=== PATIENT | female | born 1955 | race Caucasian/White ===

== ENCOUNTER → 2018-03-06 | Outpatient (CLI) | payer MEDICARE ==
[~2018-03-06] MED LIST: ALLERGY INJECTIONS IM; CETI10TA24 PO; CHOL100011 PO; FAMO-79 PO; FEXO180T72 PO; FLAX1000 PO; HYDR-882 PO; LACT1CAP35 PO; LEVO125T PO; POLY17PO5 PO; VITAMIN B12 IM
[2018-03-06 12:48] LABS: BASOPHILS # (AUTO) 0.03 x10^3/uL (0-0.1); BASOPHILS % (AUTO) 1 % (0-1); EOSINOPHILS # (AUTO) 0.07 x10^3/uL (0-0.4); EOSINOPHILS % (AUTO) 2 % (1-7); LYMPHOCYTES # (AUTO) 1.34 x10^3/uL (1-3.4); LYMPHOCYTES % (AUTO) 29 % (22-44); MD NO; MEAN CORPUSCULAR HEMOGLOBIN 32.1 pg (27.0-34.8); MEAN CORPUSCULAR HGB CONC 34.4 g/dL (32.4-35.8); MEAN CORPUSCULAR VOLUME 93.3 fL (80-100); MEAN PLATELET VOLUME 7.4 fL (7.4-10.4); MICROSCOPIC AUTO; MONOCYTES # (AUTO) 0.26 x10^3/uL (0.2-0.8); MONOCYTES % (AUTO) 6 % (2-9); NEUTROPHILS # (AUTO) 2.87 x10^3/uL (1.8-6.8); NEUTROPHILS % (AUTO) 63 % (42-75); PLATELET COUNT 304 x10^3/uL (130-400); RED BLOOD COUNT 4.81 x10^6/uL (3.82-5.3)
[2018-03-06 12:49] LABS: CULTURE INDICATED? NO
[2018-03-06 12:53] LABS: ANION GAP 7 mmol/L (5-15); CALCIUM 9.2 mg/dL (8.5-10.1); CHLORIDE 107 mmol/L (98-107); CREATININE 1.03 mg/dL (0.55-1.02)
== END | disposition home or self-care (01) ==
LOC: STAR 11:53
PROVIDERS: ATTEND Orthopaedic Surgery
DX: Z01.818 Encounter for other preprocedural examination (principal); M17.12 Unilateral primary osteoarthritis, left knee
CPT/HCPCS: 36415; 80048; 81001; 85025; 87081; 93005

== ENCOUNTER 2018-03-12 07:06 | Inpatient (IN) | payer MEDICARE ==
[~2018-03-12] VITALS: Ht 175.3 cm; Wt 71.8 kg
[~2018-03-12 07:06] MED LIST changes: +EPINEPHRINE 1 MG/ML, 1ML ONE; -HYDR-882 PO; +KETOROLAC 60 MG/2 ML ONE; +ROPIvacaine/PF 0.2%, 20 ML ONE; +SODIUM CHLORIDE 0.9% 100 ML ONE; +TRANEXAMIC ACID 100 MG/ML, 10ML ONE; +VANCOMYCIN 1,000 MG ONE
[2018-03-12] MEDS ORDERED: ACETAMINOPHEN 500 MG TABLET PO ONE (07:30)
[2018-03-12] MEDS ORDERED: SCOPOLAMINE PATCH, 1.5MG PATCH.TD72 TD ONE (07:30)
[2018-03-12] MEDS ORDERED: OxyconTIN ER 10 MG TAB.ER PO ONE (07:30)
[2018-03-12] MEDS ORDERED: GABAPENTIN 300 MG CAPSULE PO ONE (07:30)
[2018-03-12] MEDS ORDERED: MIDAZOLAM 1 MG/ML, 2ML ONE (07:57)
[2018-03-12] MEDS ORDERED: FENTANYL PF 100 MCG/2ML ONE (07:58)
[2018-03-12] MEDS: LACTATED RINGERS 1,000 ML IV SCH ×2 (08:18→20:25)
[2018-03-12] MEDS: D5%-0.45% NACL 1,000 ML IV SCH ×2 (10:01→18:01)
[2018-03-12] MEDS ORDERED: PROPOFOL 10 MG/ML, 20ML ONE (10:13)
[2018-03-12] MEDS ORDERED: CEFAZOLIN 1,000 MG ONE (10:13)
[2018-03-12] MEDS ORDERED: ROCURONIUM 10 MG/ML,10ML ONE (10:13)
[2018-03-12] MEDS ORDERED: DEXAMETHASONE 4 MG/ML, 1ML ONE (10:13)
[2018-03-12] MEDS ORDERED: ONDANSETRON 2MG/ML, 2ML ONE (10:13)
[2018-03-12] MEDS ORDERED: SUCCINYLCHOLINE 20 MG/ML, 10ML ONE (10:13)
[2018-03-12] MEDS ORDERED: DIAZEPAM 5 MG TABLET PO PRN (10:30)
[2018-03-12] MEDS ORDERED: HYDROmorphone 2MG TABLET PO PRN (10:30)
[2018-03-12] MEDS ORDERED: KETOROLAC 30 MG/1 ML IV SCH (10:30)
[2018-03-12] MEDS ORDERED: ZOLPIDEM 5MG TABLET PO PRN (10:30)
[2018-03-12] MEDS ORDERED: HYDROmorphone 1 MG/ML, 1ML IV PRN ×2 (10:30→12:30)
[2018-03-12] MEDS ORDERED: BISACODYL 10 MG SUPP PR PRN (10:30)
[2018-03-12] MEDS ORDERED: ONDANSETRON 4 MG TABLET PO PRN (10:30)
[2018-03-12] MEDS ORDERED: MAGNESIUM HYDROXIDE 8%, 30ML UDC PO PRN (10:30)
[2018-03-12] MEDS ORDERED: SENNA/DOCUSATE TABLET PO PRN (10:30)
[2018-03-12] MEDS ORDERED: ALUMINUM/MAG/SIMETHICONE 30 ML UDC PO PRN (10:30)
[2018-03-12] MEDS ORDERED: DIPHENHYDRAMINE 50 MG CAPSULE PO PRN (10:30)
[2018-03-12] MEDS ORDERED: PROMETHAZINE 25 MG/ML, 1ML IM PRN (10:30)
[2018-03-12] MEDS ORDERED: PROMETHAZINE 12.5 MG SUPP PR PRN (10:30)
[2018-03-12] MEDS ORDERED: ONDANSETRON 2MG/ML, 2ML IV PRN (10:30)
[2018-03-12] MEDS ORDERED: TRANEXAMIC ACID 1,000 MG in SODIUM CHLORIDE 0.9% 100 ML IVPB ONE (12:00)
[2018-03-12] MEDS ORDERED: LABETALOL 5MG/ML, 20ML IV PRN (12:30)
[2018-03-12] MEDS ORDERED: ALBUTEROL SULFATE 2.5 MG/3 ML NPPB PRN (12:30)
[2018-03-12] MEDS ORDERED: OXYcodone 5 MG/5 ML ORAL.SOL UDC PO PRN (12:30)
[2018-03-12] MEDS ORDERED: METOCLOPRAMIDE 5 MG/ML, 2ML IV PRN (12:30)
[2018-03-12] MEDS ORDERED: KETOROLAC 30 MG/1 ML IV PRN (12:30)
[2018-03-12] MEDS ORDERED: hydrALAzine 20 MG/ML, 1ML IV PRN (12:30)
[2018-03-12] MEDS ORDERED: MEPERIDINE/PF 25MG/0.5ML IVPush PRN (12:30)
[2018-03-12] MEDS ORDERED: ONDANSETRON 2MG/ML, 2ML IVPush PRN (12:30)
[2018-03-12] MEDS ORDERED: FENTANYL PF 100 MCG/2ML IV PRN (12:30)
[2018-03-12] MEDS ORDERED: PROMETHAZINE 25 MG/ML, 1ML IV PRN (12:30)
[2018-03-12] MEDS ORDERED: OXYcodone 5 MG/5 ML ORAL.SOL UDC ONE (12:36)
[2018-03-12 13:20] VITALS: BP 138/74
[2018-03-12] MEDS: ACETAMINOPHEN 650 MG/20.3 ML UDC PO SCH ×2 (14:45→20:24)
[2018-03-12] MEDS: TAMSULOSIN 0.4 MG CAP.ER.24H PO SCH (16:30)
[2018-03-12] MEDS: KETOROLAC 30 MG/1 ML IV SCH ×2 (16:30→22:33)
[2018-03-12] MEDS: CEFAZOLIN PMX 2GM/50ML 50 ML IVPB SCH (18:20)
[2018-03-12 20:18] VITALS: BP 141/69
[2018-03-12] MEDS: DOCUSATE 100 MG CAPSULE PO SCH (20:24)
[2018-03-13 00:17] VITALS: BP 106/66
[2018-03-13] MEDS: D5%-0.45% NACL 1,000 ML IV SCH (01:10)
[2018-03-13] MEDS: CEFAZOLIN PMX 2GM/50ML 50 ML IVPB SCH (02:10)
[2018-03-13] MEDS: ACETAMINOPHEN 650 MG/20.3 ML UDC PO SCH ×2 (02:11→08:42)
[2018-03-13 03:07] VITALS: BP 111/70
[2018-03-13] MEDS: KETOROLAC 30 MG/1 ML IV SCH ×2 (04:37→10:29)
[2018-03-13] MEDS ORDERED: ASPIRIN 81 MG TABLET EC PO SCH (06:00)
[2018-03-13] MEDS ORDERED: LEVOTHYROXINE 125 MCG TABLET PO SCH (06:00)
[2018-03-13] MEDS ORDERED: DEXAMETHASONE 4 MG/ML, 1ML IVPush SCH (06:00)
[2018-03-13 07:35] VITALS: BP 126/76
[2018-03-13] MEDS: TAMSULOSIN 0.4 MG CAP.ER.24H PO SCH (08:42)
[2018-03-13] MEDS: DOCUSATE 100 MG CAPSULE PO SCH (08:42)
[2018-03-13] MEDS ORDERED: MULTIVITAMINS/MINERALS TABLET PO SCH (09:00)
[2018-03-13] MEDS ORDERED: HYDR-882 PO (12:02)
== END 2018-03-13 12:23 | disposition home or self-care (01) | DRG 470 ==
LOC: OUT 07:06 → ORIP 10:01 → 4NOR 13:13 → DCLOUNGE 03-13 12:00
PROVIDERS: ADMIT Orthopaedic Surgery; ATTEND Orthopaedic Surgery
PROC: 3E0R3BZ Introduction of Anesthetic Agent into Spinal Canal, Percutaneous Approach (ICD-10-PCS; 2018-03-12)
PROC: 0SRD0L9 Replacement of Left Knee Joint with Medial Unicondylar Synthetic Substitute, Cemented, Open Approach (ICD-10-PCS; principal; 2018-03-12 09:45)
DX: M17.12 Unilateral primary osteoarthritis, left knee (principal); E03.9 Hypothyroidism, unspecified; Z88.2 Allergy status to sulfonamides; Z88.5 Allergy status to narcotic agent; Z72.89 Other problems related to lifestyle
CPT/HCPCS: 36415; 85014; 85018; C1713; J0171; J0690; J1100; J1885; J2250; J2405; J2550; J2704; J2795; J3010; J3370; Q0162; C1776; J0330; J7120